=== PATIENT | male | born 1990 | race Caucasian/White ===

== ENCOUNTER 2021-10-30 06:29 | Emergency (ER) | payer BC, SELFPAY ==
--- NOTE | ~2021-10-30 | CT_ITS ---
EXAMINATION: CT cervical spine wo con DATE: 10/30/2021 07:35 INDICATION: Neck pain. Injury. TECHNIQUE: Computed tomography (CT) of the cervical spine was performed without intravenous contrast. Automated exposure control and iterative reconstruction technique were employed. The dose-length pro duct was 398.44 mGy-cm. COMPARISON: None FINDINGS: There is 3 degrees dextrocurvature of cervical spine. Vertebral body heights and interverte bral disc heights are normal. The following disc levels are specifically discussed: C2-C3: There is no uncovertebral joint osteoarthritis. There is no facet joint osteoarthritis. There is no neural foraminal stenosis. There is no central canal stenosis. C3-C4: There is mild bilateral uncovertebral joint osteoarthritis. There is no facet joint osteoarthr itis. There is no neural foraminal stenosis. There is no central canal stenosis. C4-C5: There is mild bilateral uncovertebral joint osteoarthritis. There is no facet joint osteoarthr itis. There is no neural foraminal stenosis. There is no central canal stenosis. C5-C6: There is mild bilateral uncovertebral joint osteoarthritis. There is mild bilateral facet join t osteoarthritis. There is no neural foraminal stenosis. There is mild central canal stenosis. C6-C7: There is no uncovertebral joint osteoarthritis. There is mild bilateral facet joint osteoarthr itis. There is no neural foraminal stenosis. There is mild central canal stenosis. C7-T1: There is no uncovertebral joint osteoarthritis. There is mild bilateral facet joint osteoarthr itis. There is no neural foraminal stenosis. There is no central canal stenosis. IMPRESSION: 1. No fracture. 2. Mild cervical spondylosis. Reviewed, dictated and finalized at location A.
--- NOTE | ~2021-10-30 | CT_ITS ---
EXAMINATION: CT thoracic spine wo con DATE: 10/30/2021 07:35 INDICATION: Back pain. TECHNIQUE: Computed tomography (CT) of the thoracic spine was performed without intravenous contrast. Automated exposure control and iterative reconstruction technique were employed. The dose-length pro duct was 680.88 mGy-cm. COMPARISON: None FINDINGS: There is 7 degrees levocurvature of upper thoracic spine. Vertebral body heights are normal . There is mildly decreased disc height from T3-T4 through T7-T8. There is multilevel mild facet join t osteoarthritis. No neural foraminal stenosis or central canal stenosis. IMPRESSION: 1. Mild thoracic spondylosis. Reviewed, dictated and finalized at location A.
[2021-10-30 06:36] VITALS: BP 131/92; PULSE 61; RESP 16; TEMP 36.4; O2SAT 99
--- NOTE | 2021-10-30 07:06 | ED.NECK ---
HPI - Neck Pain/Injury General Chief Complaint: Neck Pain/Injury Stated Complaint: pinched nerve in neck Time Seen by Provider: 10/30/21 06:51 Source: patient Mode of arrival: ambulatory Limitations: no limitations History of Present Illness HPI Narrative: Patient is a previously healthy 31-year-old male presenting for evaluation of lower neck pain that began while he was reaching for something in the shower. Patient states that he reached down and felt a popping sensation in his neck with immediate pain in the midline of his neck with radiation of the pain into the right side of the neck. Patient denies associated fall or injury. No head trauma. He denies any upper extremity numbness or weakness. He has full range of motion of both arms up to the shoulders without limitation or pain. Patient denies history of this in the past. He did take meloxicam overnight and early this morning without any improvement in his symptoms, thus he is seeking care here today. Related Data Allergies Allergy/AdvReac Type Severity Reaction Status Date / Time cat dander Allergy Sneezing Verified 10/30/21 06:41 SEASONAL ALLERGIES Allergy Mild SNEEZING, Uncoded 10/30/21 06:41 NASAL DRAINAGE Review of Systems Review of Systems: CONSTITUTIONAL: Denies fever CARDIOVASCULAR: Denies chest pain RESPIRATORY: Denies cough or dyspnea. GASTROINTESTINAL: Denies abdominal pain SKIN: Denies rash MUSCULOSKELETAL: Denies back pain, reports neck pain NEUROLOGIC: Denies headache PMFSH Past Medical History Medical History (Updated 10/30/21 @ 08:19 by Gisselle Bustillo MD) Cervicalgia History of esophageal dilatation Pyloric stenosis, congenital Seasonal allergies Social History Social History (Updated 10/30/21 @ 07:20 by Gisselle Bustillo MD) Smoking status: Never smoker Alcohol intake: current Alcohol use details: social, rare Substance use: never Living arrangements: with family Gender identity (if verbalized by the patient): Male Exam Narrative: GENERAL: Awake, alert, conversant HEAD: Normocephalic, atraumatic. EYES: PERRLA and EOMI. ENT: Nares clear, no rhinorrhea or epistaxis. Mucous membranes moist. No midline cervical tenderness, positive thoracic midline tenderness at T1, T2. No paraspinal tenderness bilaterally. NECK: Supple. CHEST: No respiratory distress, breathing even and non labored HEART: Regular rate, sinus rhythm ABDOMEN:Non distended, non tender EXTREMITIES: Normal range of motion. No edema. SKIN: Warm, dry, no rash. NEURO:No focal deficits. Alert and oriented x3. Upper extremity strength 5/5 bilaterally. Intact sensation overlying the deltoid, full range of motion of bilateral elbows and wrist without limitation or deficit. Intact sensation in the m/u/r nerve distribution. Course Vital Signs Vital signs: Vital Signs Temperature 36.4 C L 10/30/21 06:36 Pulse Rate 61 10/30/21 06:36 Respiratory Rate 16 10/30/21 06:36 Blood Pressure 131/92 H 10/30/21 06:36 Pulse Oximetry 99 10/30/21 06:36 Oxygen Delivery Room Air 10/30/21 06:36 Temperature 36.4 C L 10/30/21 06:36 Pulse Rate 61 10/30/21 06:36 Respiratory Rate 16 10/30/21 06:36 Blood Pressure 131/92 H 10/30/21 06:36 Pulse Oximetry 99 10/30/21 06:36 Oxygen Delivery Room Air 10/30/21 06:36 MDM - Neck Pain/Injury MDM Narrative Medical decision making narrative: Patient presenting for evaluation of neck pain after bending over picking something up in his shower. Patient without fall or injury. No midline pain. He is neurovascularly intact with normal strength, sensation in the upper extremities. Low suspicion for vertebral artery injury here given normal strength, normal pulses and sensation. Given mechanism, this seems most likely to be cervical radiculopathy, cervicalgia, cervical spondylosis, torticollis. Patient was given medications to help with symptom management. His CT imaging is reassuring
--- NOTE | 2021-10-30 07:07 | PC.NURSE ---
Report given to SARAH Green.
--- NOTE | 2021-10-30 07:32 | PC.NURSE ---
Patient in radiology.
[2021-10-30] MEDS: ACETAMINOPHEN 500 MG TABLET 1000 MG PO (07:40)
[2021-10-30] MEDS: diazePAM (*CRX) 5 MG TABLET PO (07:40)
[2021-10-30] MEDS: KETOROLAC (*BKC) 60 MG/2 ML VIAL 30 MG IM (07:41)
[2021-10-30 08:42] VITALS: BP 111/80; PULSE 73; RESP 18; O2SAT 99
== END 2021-10-30 08:43 | disposition home or self-care (01) ==
PROVIDERS: Emergency Provider Emergency Medicine
DX: M47.22 Other spondylosis with radiculopathy, cervical region (principal); M50.10 Cervical disc disorder with radiculopathy, unspecified cervical region; M47.814 Spondylosis without myelopathy or radiculopathy, thoracic region
CPT/HCPCS: 72125; 72128; 96372; 99284; A9270; J1100; J1885